=== PATIENT | female | born 1955 | race Caucasian/White ===

== ENCOUNTER 2022-01-15 11:50 | Outpatient (CLI) | payer MEDICARE, BC, SELFPAY ==
[2022-01-15 13:51] LABS: Chloride* 101 mmol/L (96-114); Potassium* 4.3 mmol/L (3.6-5.1); Sodium* 138 mmol/L (135-149)
[2022-01-15 13:54] LABS: Blood Urea Nitrogen* 14 mg/dL (7-30); Carbon Dioxide* 31 mmol/L (20-32); Cholesterol* 230 mg/dL (90-199); Creatinine* 0.7 mg/dL (0.5-1.5); Estimated Glomerular Filt Rate 95 ml/min; Glucose* 90 mg/dL (60-115); Triglycerides* 92 mg/dL (40-149)
[2022-01-15 13:55] LABS: Calcium* 9.4 mg/dL (8.4-10.6); HDL Cholesterol* 70 mg/dL (>=50); LDL Cholesterol Calculated 142 mg/dL (<100)
== END 2022-01-15 11:51 | disposition home or self-care (01) ==
PROVIDERS: PCP Physician Assistant Medical; Visit Provider Physician Assistant Medical
DX: Z13.6 Encounter for screening for cardiovascular disorders; Z13.9 Encounter for screening, unspecified
CPT/HCPCS: 80048; 80061

== ENCOUNTER 2022-01-30 13:09 | Outpatient (CLI) | payer MEDICARE, BC, SELFPAY ==
--- NOTE | 2022-01-30 13:20 | CRLHL7_ITS ---
For Patients: As a result of the Cures Act, medical imaging exams and procedure reports are released immediately into your electronic medical record. You may view this report before your referring provider. If you have questions, please contact your health care provider. BILATERAL SCREENING MAMMOGRAM WITH COMPUTER-AIDED DETECTION AND TOMOSYNTHESIS TECHNIQUE: CC and MLO views were obtained. These mammographic images have been obtained using full-field digital technique. These mammographic images were interpreted with the benefit of computer-aided detection. Breast Tomosynthesis was used in this interpretation. COMPARISON FILM: 12/08/20, 12/09/19, 08/13/16. FINDINGS: The breasts are heterogeneously dense, which may obscure small masses IMPRESSION: There is no radiographic evidence for malignancy. ASSESSMENT: BI-RADS Category 1: Negative RECOMMENDATION: Routine screening mammogram in 1 year. A lay language report of this examination will be provided to the patient. Kemar Jimenez M.D. Diagnostic Radiologist [email or web address] TRE/[email or web address] / be/Dictated by: Kemar Jimenez MD @ 01/31/2022 11:44:00 AM (Electronically Signed)
== END 2022-01-30 13:10 | disposition home or self-care (01) ==
LOC: MAMMO 13:10
PROVIDERS: PCP Physician Assistant Medical; Visit Provider Physician Assistant Medical
DX: Z12.31 Encounter for screening mammogram for malignant neoplasm of breast (principal); R92.2 Inconclusive mammogram
CPT/HCPCS: 77063; 77067

== ENCOUNTER 2022-04-19 10:44 | Outpatient (CLI) | payer MEDICARE, BC, SELFPAY ==
[2022-04-19 16:32] LABS: Albumin* 4.2 g/dL (3.3-5.0); Chloride* 105 mmol/L (96-114); Potassium* 4.4 mmol/L (3.6-5.1); Sodium* 141 mmol/L (135-149)
[2022-04-19 16:34] LABS: Bilirubin Total* 0.5 mg/dL (0.1-1.5); Carbon Dioxide* 33 mmol/L (20-32); Cholesterol* 203 mg/dL (90-199); Creatinine* 0.7 mg/dL (0.5-1.5); Estimated Glomerular Filt Rate 95 ml/min; Total Protein* 6.5 g/dL (6.0-8.3)
[2022-04-19 16:35] LABS: Alanine Aminotransferase* 20 U/L (4-35); Alkaline Phosphatase* 35 U/L (40-150); Aspartate Amino Transferase* 29 U/L (12-35); Blood Urea Nitrogen* 14 mg/dL (7-30); Calcium* 9.1 mg/dL (8.4-10.6); Glucose* 84 mg/dL (60-115); HDL Cholesterol* 72 mg/dL (>=50); LDL Cholesterol Calculated 116 mg/dL (<100); Triglycerides* 77 mg/dL (40-149)
== END 2022-04-19 10:45 | disposition home or self-care (01) ==
PROVIDERS: PCP Physician Assistant Medical; Visit Provider Physician Assistant Medical
DX: E78.5 Hyperlipidemia, unspecified (principal)
CPT/HCPCS: 80053; 80061

== ENCOUNTER 2023-02-01 08:58 | Outpatient (CLI) | payer MEDICARE, BC, SELFPAY ==
--- NOTE | 2023-02-01 09:15 | CRLHL7_ITS ---
For Patients: As a result of the Century Cures Act, medical imaging exams and procedure reports are released immediately into your electronic medical record. You may view this report before your referring provider. If you have questions, please contact your health care provider. BILATERAL SCREENING MAMMOGRAM WITH COMPUTER-AIDED DETECTION AND TOMOSYNTHESIS TECHNIQUE: CC and MLO views were obtained. These mammographic images have been obtained using full-field digital technique. These mammographic images were interpreted with the benefit of computer-aided detection. Breast Tomosynthesis was used in this interpretation. COMPARISON FILM: 01/30/22, 12/08/20, 12/09/19. FINDINGS: The breasts are heterogeneously dense, which may obscure small masses IMPRESSION: There is no radiographic evidence for malignancy. ASSESSMENT: BI-RADS Category 1: Negative RECOMMENDATION: Routine screening mammogram in 1 year. A lay language report of this examination will be provided to the patient. Kemar Jimenez M.D. Diagnostic Radiologist [email or web address] [email or web address] Transcribed: 12:18 p.mNiecy haney/Dictated by: Kemar Jimenez MD @ 02/01/2023 10:10:00 AM (Electronically Signed)
== END 2023-02-01 08:59 | disposition home or self-care (01) ==
LOC: MAMMO 08:59
PROVIDERS: PCP Physician Assistant Medical; Visit Provider Physician Assistant Medical
DX: Z12.31 Encounter for screening mammogram for malignant neoplasm of breast (principal); R92.2 Inconclusive mammogram
CPT/HCPCS: 77063; 77067

== ENCOUNTER 2023-02-22 09:02 | Outpatient (CLI) | payer MEDICARE, BC, SELFPAY | END 2023-02-22 09:03 | disposition home or self-care (01) | LOC: NFLDREF 02-25 08:11 | PROVIDERS: PCP Physician Assistant Medical; Referring Provider Physician Assistant Medical; Visit Provider Physician Assistant Medical | DX: Z00.00 Encounter for general adult medical examination without abnormal findings (principal); E78.5 Hyperlipidemia, unspecified; R79.89 Other specified abnormal findings of blood chemistry | CPT/HCPCS: 80053; 80061 ==

== ENCOUNTER 2023-03-05 08:23 | Outpatient (CLI) | payer MEDICARE, BC, SELFPAY ==
--- NOTE | 2023-03-05 08:45 | CRLHL7_ITS ---
For Patients: As a result of the Century Cures Act, medical imaging exams and procedure reports are released immediately into your electronic medical record. You may view this report before your referring provider. If you have questions, please contact your health care provider. INDICATION: RUQ pain COMPARISON: none TECHNIQUE: Real time smith scale imaging and color Doppler analysis was performed of the right upper quadrant. FINDINGS: The patient`s liver is of normal size and has uniform echogenicity. There is a normal appearance of the hepatic IVC and proximal abdominal aorta. There is no evidence of ascites. The gallbladder is of normal size and there is no evidence of intraluminal stones or sludge. The gallbladder wall measures 1.9 mm in thickness. The common bile duct is of normal size and measures 3.5 mm in diameter at the level of the antoine hepatis. The pancreas appears normal. There is no evidence of a stone or hydronephrosis within the right kidney. The right kidney measures 9.3 cm in length. IMPRESSION: Normal right upper quadrant ultrasound. Dictated by Kemar Jimenez MD @ 03/05/2023 10:43:25 AM (Electronically Signed)
== END 2023-03-05 08:24 | disposition home or self-care (01) ==
LOC: US 08:24
PROVIDERS: PCP Physician Assistant Medical; Visit Provider Physician Assistant Medical
DX: R10.11 Right upper quadrant pain (principal)
CPT/HCPCS: 76705

== ENCOUNTER 2023-03-07 11:20 | Outpatient (CLI) | payer MEDICARE, BC, SELFPAY | END 2023-03-07 11:21 | disposition home or self-care (01) | LOC: NFLDREF 03-15 06:32 | PROVIDERS: PCP Physician Assistant Medical; Referring Provider Physician Assistant Medical; Visit Provider Physician Assistant Medical | DX: R10.11 Right upper quadrant pain (principal) | CPT/HCPCS: 87086 ==

== ENCOUNTER 2023-03-19 12:39 | Outpatient (CLI) | payer MEDICARE, BC, SELFPAY ==
--- NOTE | 2023-03-19 13:00 | CRLHL7_ITS ---
For Patients: As a result of the Century Cures Act, medical imaging exams and procedure reports are released immediately into your electronic medical record. You may view this report before your referring provider. If you have questions, please contact your health care provider. INDICATION: Right-sided abdominal pain. TECHNIQUE: CT abdomen and pelvis acquired with 56 cc Isovue 370 IV contrast. COMPARISON: Ultrasound abdomen March 05, 2023. FINDINGS: Lower chest: Small pericardial effusion. Liver: Unremarkable. Normal in size and attenuation. No suspicious masses. Gallbladder and bile ducts: Unremarkable. No stones or inflammation. No biliary dilatation. Pancreas: Unremarkable. No mass or inflammation. Spleen: Unremarkable. Normal in size. No masses. Adrenal glands: Unremarkable. No nodules. Kidneys: Unremarkable. No suspicious masses, stones, or hydronephrosis. GI tract: Unremarkable. Normal in caliber. No sign of mass or inflammation. Appendix is within normal limits in size with questionable subtle adjacent fat stranding. Vasculature: Abdominal aorta is normal in caliber. Mesenteric arteries are patent. Lymph nodes: No lymphadenopathy. Peritoneum/Abdominal Wall: Unremarkable. No sign of mass or infiltration. No free air or significant free fluid. Pelvis: Unremarkable. Bones: Unremarkable for age. IMPRESSION: 1. Questionable subtle appendicitis. Consider short-term follow-up CT evaluation depending on patient`s clinical course. 2. Remainder the exam is unremarkable. No other finding to explain right-sided abdomen pain. Please note that all CT scans at this facility use dose modulation, iterative reconstruction, and/or weight-based dosing when appropriate to reduce radiation dose to as low as reasonably achievable. Dictated by Fan Tavera MD @ 03/20/2023 3:59:52 PM (Electronically Signed)
== END 2023-03-19 12:40 | disposition home or self-care (01) ==
PROVIDERS: PCP Physician Assistant Medical; Visit Provider Physician Assistant Medical
DX: R10.11 Right upper quadrant pain (principal); R79.89 Other specified abnormal findings of blood chemistry
CPT/HCPCS: 74177; Q9967

== ENCOUNTER 2023-04-05 07:09 | Outpatient (CLI) | payer MEDICARE, BC, SELFPAY ==
--- NOTE | 2023-04-05 09:42 | W.ANESCHARGE ---
Anesthesia Charges Start Date/Time Anesthesia Start Date: 04/05/23 Anesthesia Start Time: 07:48 Stop Date/Time Anesthesia Stop Date: 04/05/23 Anesthesia Stop Time: 08:26
--- NOTE | 2023-04-05 09:48 | W.ANESCHARGE ---
Anesthesia Charges Start Date/Time Anesthesia Start Date: 04/05/23 Anesthesia Start Time: 07:48 Stop Date/Time Anesthesia Stop Date: 04/05/23 Anesthesia Stop Time: 08:26
== END 2023-04-05 07:10 | disposition home or self-care (01) ==
LOC: OP CLINIC 07:09
PROVIDERS: PCP Physician Assistant Medical; Visit Provider Internal Medicine
DX: R10.84 Generalized abdominal pain (principal); K63.5 Polyp of colon; K57.30 Diverticulosis of large intestine without perforation or abscess without bleeding
CPT/HCPCS: 00813; 43239; 45380; 88305; J2704; J3490

== ENCOUNTER 2023-04-09 12:45 | Outpatient (CLI) | payer MEDICARE, BC, SELFPAY ==
--- NOTE | 2023-04-09 13:00 | CRLHL7_ITS ---
For Patients: As a result of the Century Cures Act, medical imaging exams and procedure reports are released immediately into your electronic medical record. You may view this report before your referring provider. If you have questions, please contact your health care provider. DXA BONE MINERAL DENSITY STUDY 04/09/2023 Current height (in): 61.0. Weight (lb): 114.0. Menopause age: 50. Ethnicity: White. Reason for exam: Asymptomatic menopausal state. 1. Have you had a previous hip or vertebral fracture? No. 2. Have you had any fractures during your adult life which did not result from significant trauma (e.g., auto accident)? No. 3. Did either of your parents have a hip fracture? No. 4. Do you smoke? No. 5. Have you ever taken Glucocorticoids? No. 6. Do you have rheumatoid arthritis? No. 7. Do you have secondary osteoporosis? No. 8. Do you drink 3 or more alcoholic drinks per day? No. 9. Are you being treated for osteoporosis? No. 10. Have you ever taken any of the following medications: Actonel, Evista, Fosamax, Miacalcin, Reclast, Boniva, Forteo, HRT (i.e. estrogen/hormone therapy), Protelos, Prolia, Vitamin D, Calcium, other ??? please specify. ANSWER: Yes, vitamin D, calcium. 11. Do you have any of the following medical conditions: Anorexia or bulimia, asthma or emphysema, end stage renal disease, hyperparathyroidism, any seizure disorders, cancer, inflammatory bowel diseases, hysterectomy, other ??? please specify. ANSWER: No. 12. What was your maximum height (inches)? 62. 13. Do you perform weight bearing exercise regularly? No. 14. Do you regularly consume dairy products? Yes. 15. Do you drink caffeinated beverages? No. 16. At what age did your period start? 13. 17. Are you premenopausal? No. 18. How many full term pregnancies have you had? 3. 19. Have you ever missed your period for more than 6 months in a row (not including or menopause)? No. TECHNIQUE: Bone mineral density study was performed using the [employer]. FINDINGS: The results of the study expressed as bone mineral density (BMD) are as follows: Lumbar spine L1 to L4: BMD: 0.787 g/cm2. T-score: -2.4. Z-score: -0.4. Neck Left: BMD: 0.616 g/cm2. T-score: -2.1. Z-score: -0.4 Right: BMD: 0.620 g/cm2. T-score: -2.1. Z-score: -0.3 Total Left: BMD: 0.792 g/cm2. T-score: -1.2. Z-score: 0.2 Right: BMD: 0.827 g/cm2. T-score: -0.9. Z-score: 0.5 IMPRESSION: Osteopenia. *Comparison exams done prior to 09/2019 were performed on different unit, [employer]. COMPARISON: Compared with scan of 12/09/2019, the bone mineral density has decreased by 0.4 percent at the spine and increased by 9.7 percent at the hip. FRAX 10-year Fracture Risk Major Osteoporotic Fracture: 11 percent Hip Fracture: 2.0 percent Reported Risk Factors: [place] () Neck BMD = 0.616, BMI = 21.5 Nathaly Marino M.D. Diagnostic/Breast Radiologist [email or web address] Transcribed: 1:11 pm DW/Dictated by: Nathaly Marino MD @ 04/11/2023 11:57:00 AM (Electronically Signed)
== END 2023-04-09 12:46 | disposition home or self-care (01) ==
LOC: RAD 12:46
PROVIDERS: PCP Physician Assistant Medical; Visit Provider Physician Assistant Medical
DX: Z13.820 Encounter for screening for osteoporosis (principal); M85.89 Other specified disorders of bone density and structure, multiple sites; Z78.0 Asymptomatic menopausal state
CPT/HCPCS: 77080

== ENCOUNTER 2023-04-11 11:40 | Outpatient (CLI) | payer MEDICARE, BC, SELFPAY ==
--- NOTE | 2023-04-11 12:00 | CRLHL7_ITS ---
For Patients: As a result of the Century Cures Act, medical imaging exams and procedure reports are released immediately into your electronic medical record. You may view this report before your referring provider. If you have questions, please contact your health care provider. INDICATION: Elevated liver function tests. TECHNIQUE: 5.11 mCi t labeled Mebrofenin. 1.08 mcg Kinevac IV. FINDINGS: Normal uptake and excretion of tracer by the liver. Activity is identified within the extrahepatic biliary tree between 5 and 10 minutes after injection. The gallbladder begins to fill between 15 and 20 minutes after injection. Continued filling of the gallbladder up to 1 hour. After the administration of CCK the gallbladder ejection fraction is calculated at 93 percent which is within normal limits. IMPRESSION: 1. Normal HIDA scan. 2. Normal gallbladder ejection fraction. Dictated by Tucker Gordillo MD @ 04/12/2023 11:31:50 AM (Electronically Signed)
== END 2023-04-11 11:41 | disposition home or self-care (01) ==
LOC: NM 11:40
PROVIDERS: PCP Physician Assistant Medical; Visit Provider Surgery
DX: R79.89 Other specified abnormal findings of blood chemistry (principal); R93.5 Abnormal findings on diagnostic imaging of other abdominal regions, including retroperitoneum
CPT/HCPCS: 78227; A9537; J2805

== ENCOUNTER 2024-03-02 11:58 | Outpatient (CLI) | payer MEDICARE, BC, SELFPAY | END 2024-03-02 11:59 | disposition home or self-care (01) | PROVIDERS: PCP Physician Assistant Medical; Visit Provider Physician Assistant Medical | DX: Z00.00 Encounter for general adult medical examination without abnormal findings (principal); E78.5 Hyperlipidemia, unspecified; R79.89 Other specified abnormal findings of blood chemistry; F41.9 Anxiety disorder, unspecified; Z13.6 Encounter for screening for cardiovascular disorders | CPT/HCPCS: 80053; 80061 ==

== ENCOUNTER 2024-03-06 13:27 | Outpatient (CLI) | payer MEDICARE, BC, SELFPAY ==
--- NOTE | 2024-03-06 13:40 | CRLHL7_ITS ---
For Patients: As a result of the Century Cures Act, medical imaging exams and procedure reports are released immediately into your electronic medical record. You may view this report before your referring provider. If you have questions, please contact your health care provider. BILATERAL SCREENING MAMMOGRAM WITH COMPUTER-AIDED DETECTION AND TOMOSYNTHESIS TECHNIQUE: CC and MLO views were obtained. These mammographic images have been obtained using full-field digital technique. These mammographic images were interpreted with the benefit of computer-aided detection. Breast Tomosynthesis was used in this interpretation. COMPARISON FILM: 02/01/23, 01/30/22, 12/08/20. FINDINGS: The breasts are extremely dense, which lowers the sensitivity of mammography. IMPRESSION: There is no radiographic evidence for malignancy. ASSESSMENT: BI-RADS Category 2: Benign RECOMMENDATION: Routine screening mammogram in 1 year. A lay language report of this examination will be provided to the patient. Kemar Jimenez M.D. Diagnostic Radiologist [email or web address] SP/Dictated by: Kemar Jimenez MD @ 03/09/2024 8:58:00 AM (Electronically Signed)
== END 2024-03-06 13:28 | disposition home or self-care (01) ==
LOC: MAMMO 13:28
PROVIDERS: PCP Physician Assistant Medical; Visit Provider Physician Assistant Medical
DX: Z12.31 Encounter for screening mammogram for malignant neoplasm of breast (principal); R92.343 Mammographic extreme density, bilateral breasts
CPT/HCPCS: 77063; 77067

== ENCOUNTER 2025-03-04 09:10 | Outpatient (CLI) | payer MEDICARE, BC, SELFPAY | END 2025-03-04 09:11 | disposition home or self-care (01) | PROVIDERS: PCP Physician Assistant Medical; Visit Provider Physician Assistant Medical | DX: Z00.00 Encounter for general adult medical examination without abnormal findings (principal); R03.0 Elevated blood-pressure reading, without diagnosis of hypertension; E78.5 Hyperlipidemia, unspecified; F41.9 Anxiety disorder, unspecified | CPT/HCPCS: 80048; 80061; 84443 ==

== ENCOUNTER 2025-03-09 17:15 | Outpatient (CLI) | payer MEDICARE, BC, SELFPAY ==
--- NOTE | 2025-03-09 17:40 | CRLHL7_ITS ---
For Patients: As a result of the Century Cures Act, medical imaging exams and procedure reports are released immediately into your electronic medical record. You may view this report before your referring provider. If you have questions, please contact your health care provider. INDICATION: BILATERAL SCREENING MAMMOGRAM, ASYMPTOMATIC 69 Y/O FEMALE COMPARISON: 03/06/2024, 02/11/2023, 01/30/2022 TECHNIQUE: Digital mammogram in CC and MLO projections including computer-aided detection (CAD) and tomosynthesis. BREAST COMPOSITION: The breasts are heterogeneously dense, which may obscure small masses. FINDINGS: No suspicious findings. ASSESSMENT: BI-RADS 1 Negative RECOMMENDATION: Annual screening mammogram. A lay language report of this examination will be provided to the patient. Dictated by: Kemar Jimenez MD @ 03/10/2025 12:06:29 (Electronically Signed)
== END 2025-03-09 17:16 | disposition home or self-care (01) ==
LOC: MAMMO 17:15
PROVIDERS: PCP Physician Assistant Medical; Visit Provider Physician Assistant Medical
DX: Z12.31 Encounter for screening mammogram for malignant neoplasm of breast (principal); R92.333 Mammographic heterogeneous density, bilateral breasts
CPT/HCPCS: 77063; 77067